=== PATIENT | female | born 1985 | race Caucasian/White ===

== ENCOUNTER 2016-10-26 10:18 | Outpatient (CLI) | payer BC, OTHER ==
[~2016-10-26] VITALS: Ht 165.1 cm; Wt 117.5 kg
[2016-10-26 10:33] VITALS: BP 136/85; PULSE 113; RESP 20; Ht 165.1 cm; Wt 117.5 kg
[2016-10-26] MEDS ORDERED: PREN1TAB79 PO (10:35)
--- NOTE | 2016-10-26 13:06 | RADRPT ---
PROCEDURE: US OB biophysical profile. CLINICAL INDICATION: decreased movements TECHNIQUE: Multiple sonographic images of the pelvis were obtained. The images were reviewed on a PACS workstation. COMPARISON: No prior studies are available for comparison. FINDINGS: There is a single viable intrauterine gestation. Cardiac activity is present with 137 beats per min nadja. There is a vertex presentation. The placenta is posterior. There is no evidence of placental abruption. There is a normal amount of amniotic fluid with an SIDDHARTHA = 14.9 cm. Biophysical profile: movement 2/2 tone 2/2. breathing 2/2 SIDDHARTHA 2/2 Total 01/31 RPTAT: AA . IMPRESSION: Normal biophysical profile. . .Torrey Clancy MD, MD Date Time Electronically viewed and signed by .Torrey Clancy MD, MD on 10/26/2016 13:06 .S/
== END 2016-10-26 14:25 | disposition home or self-care (01) ==
LOC: OBT 10:18 → L-D 10:19 → OBT 14:25
PROVIDERS: ATTEND Obstetrics & Gynecology
DX: O09.90 Supervision of high risk pregnancy, unspecified, unspecified trimester (principal); O36.8190 Decreased fetal movements, unspecified trimester, not applicable or unspecified; Z3A.00 Weeks of gestation of pregnancy not specified
CPT/HCPCS: 76818; Z7500; G0463

== ENCOUNTER 2016-10-31 09:51 | Inpatient (IN) | payer OTHER ==
[~2016-10-31] VITALS: Ht 165.1 cm; Wt 117.7 kg
[~2016-10-31 09:51] MED LIST: PREN1TAB79 PO
[2016-10-31 09:59] VITALS: Ht 165.1 cm; Wt 117.7 kg
[2016-10-31] MEDS ORDERED: CEFAZOLIN 2 GM/50 ML (PMX) 50 ML IV SCH (10:00)
[2016-10-31] MEDS ORDERED: OXYTOCIN 30 UNITS/LR 500 ML IV PRN ×2 (10:00→18:00)
[2016-10-31] MEDS ORDERED: METHYLERGONOVINE 0.2 MG INJ IM PRN ×2 (10:00→18:00)
[2016-10-31] MEDS ORDERED: OXYTOCIN 30 UNITS/LR 500 ML IV SCH (10:00)
[2016-10-31] MEDS ORDERED: CARBOPROST 250 MCG INJ IM PRN ×2 (10:00→18:00)
[2016-10-31] MEDS ORDERED: MISOPROSTOL 200 MCG TAB PR PRN ×2 (10:00→18:00)
[2016-10-31 10:43] LABS: ADD SCAN DIFF NO
[2016-10-31 10:47] LABS: BASOPHILS % 0.1 % (0.0-2.0); EOSINOPHILS # 0.1 10^3/ul (0.0-0.5); EOSINOPHILS % 0.8 % (0.0-7.0); HEMATOCRIT 32.8 % (37.0-47.0); HEMOGLOBIN 10.4 g/dl (12.0-16.0); LYMPHOCYTES # 2.3 10^3/ul (0.8-2.9); LYMPHOCYTES % 32.2 % (15.0-51.0); MEAN CORPUSCULAR HEMOGLOBIN 27.4 pg (29.0-33.0); MEAN CORPUSCULAR HGB CONC 31.7 g/dl (32.0-37.0); MEAN CORPUSCULAR VOLUME 86.5 fl (82.0-101.0); MEAN PLATELET VOLUME 9.8 fl (7.4-10.4); MONOCYTE # 0.4 10^3/ul (0.3-0.9); MONOCYTES % 5.5 % (0.0-11.0); NEUTROPHIL # 4.3 10^3/ul (1.6-7.5); NEUTROPHILS % 60.4 % (39.0-77.0); NUCLEATED RED BLOOD CELLS% 0.3 /100WBC (0.0-0.0); PLATELET COUNT 338 10^3/UL (140-415); RED BLOOD COUNT 3.79 10^6/ul (4.20-5.40); RED CELL DISTRIBUTION WIDTH 14.1 % (11.5-14.5); WHITE BLOOD COUNT 7.1 10^3/ul (4.8-10.8)
[2016-10-31 11:05] LABS: INR 0.91; PARTIAL THROMBOPLASTIN TIME 26.5 Sec (25.0-35.0); PROTIME 12.2 Sec (12.2-14.2)
[2016-10-31] MEDS: LACTATED RINGER'S 1,000 ML IV PRN (12:12)
[2016-10-31] MEDS ORDERED: ONDANSETRON 4 MG INJ ONE (13:12)
[2016-10-31] MEDS ORDERED: PHENYLephrine (100 MCG/ML) 5ML SYG ONE ×3 (13:12→14:06)
[2016-10-31] MEDS ORDERED: morphine SULFATE/PF (10 MG/10 ML) INJ ONE (13:12)
[2016-10-31] MEDS ORDERED: OXYTOCIN 10 UNIT INJ ONE (13:12)
--- NOTE | 2016-10-31 13:38 | HP ---
Date/Time of Note Date/Time of Note DATE: 10/31/16 TIME: 13:30 OB - History Hx of Present Free Text/Dictation 30 years old female 3 para 2 EDC November 03, 2006 admitted to [facility] at 39 weeks and 4 days with a history of 2 previous section and requests for bilateral tubal ligation this patient has been under the care of the [facility] and her was not complicated with gestational diabetes -induced hypertension or any other serious surgical or medical conditions. 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 Allergies denies allergy to any known medication Social habit denies a smoking or drinking Review of system within normal except obesity Physical examination 5 feet 5 259 pounds temperature 98.1 pulse 86 respirations 16 blood pressure 132/80 Head ears nose and throat negative Neck supple no thyromegaly Lungs clear to P&A Heart normal sinus rhythm no murmur Abdomen morbid obesity fundal height 40 cm from symphysis pubis heart rate category 1 Pelvic exam deferred Extremities no edema no varicosities Impression intrauterine at 39 weeks and 4 days history of 2 previous C -section Plan repeat for the third time patient is aware of the complication of the surgery including bowel bladder injury wound infection wound hematoma, and she is willing to go ahead with the procedure Past Family/Social History * Past Medical, Surgical, Family and Obstetric Histories reviewed from chart. OB Admission Exam Physical Exam HEENT: WNL Heart: Rhythm Normal Lungs: Clear, Equal Abdomen: WNL Extremities: Normal Cervical Dilatation: None Effacement: 0% Membranes: Intact Heart Rate: 130's Accelerations: Accelerations Present Contractions on Admission: >10 Minutes Apart Intensity: Mild Last 72 hours Lab Results CBC & BMP 10/31/16 10:15 ZACH VARNER MD October 31, 2016 13:38
[2016-10-31] MEDS ORDERED: NALOXONE (0.4 MG/ML) INJ IV PRN (15:00)
[2016-10-31] MEDS ORDERED: morphine 2 MG INJ IV PRN (15:00)
[2016-10-31] MEDS: DIPHENHYDRAMINE 50 MG INJ IV PRN (15:35)
[2016-10-31] MEDS: ONDANSETRON 4 MG INJ IV PRN ×2 (15:59→21:59)
--- NOTE | 2016-10-31 17:06 | DELSUM ---
Delivery Summary A-C Datetime Report Generated by CPN: 10/31/2016 17:06 DELIVERY PERSONNEL Equipment Analyst: Wesley, Shira MATERNAL INFORMATION Delivery Anesthesia: Spinal Medications in Delivery: SEE ANESTHESIA RECORD Estimated Blood Loss (ml): 647 Placenta Cultured: No Maternal Complications: None Other Maternal Complications: REPEAT SECTION WITH BTL LABOR SUMMARY EDC: 11/03/2016 00:00 EDC: 10/31/2016 00:00 No. Babies in Womb: 1 Attempted: No Labor Anesthesia: None LABOR INFORMATION Reason for Induction: Not Applicable Oxytocin: N/A Group B Beta Strep: Positive Group B Beta Strep: Positive Antibiotics # of Doses: ANCEF 2 GRAMS Antibiotics Time of Last Dose: 10/31/2016 13:15 Steroids Given: None Reason Steroids Not Administered: Not Applicable MEMBRANES Membranes Rupture Method: Artificial Rupture of Membranes: 10/31/2016 13:46 Length of Rupture (hr): 0.02 Amniotic Fluid Color: Clear Amniotic Fluid Amount: Large Amniotic Fluid Odor: None STAGES OF LABOR Stage 3 hr: 0 Stage 3 min: 3 CSECTION DELIVERY Primary Indication: Repeat Elective Secondary Indication: Repeat Elective CSection Urgency: Elective CSection Incidence: Repeat Labor: No Labor Elective: Elective CSection Incision: Lower Uterine Transverse Sterilization Procedure: [place] BABY A INFORMATION Infant Delivery Date/Time: 10/31/2016 13:47 Method of Delivery: Born in Route : No : N/A Forceps: N/A Vacuum Extraction: N/A Shoulder Dystocia : N/A SHOULDER DYSTOCIA BABY A Delivery Date/Time: 10/31/2016 13:47 PRESENTATION/POSITION BABY A Presentation: Other Cephalic Presentation: N/A Breech Presentation: Dwayne PLACENTA INFORMATION BABY A Placenta Delivery Time : 10/31/2016 13:50 Placenta Method of Delivery: Manual Removal Placenta Status: Delivered SCORES BABY A Heart Rate 1 min: >100 bpm Resp Effort 1 min: Good Cry Reflex Irritability 1 min: Cough/Sneeze/Pulls Away Muscle Tone 1 min: Active Motion Color 1 min: Body [place], Extremit Blue Resuscitation Effort 1 min: Tactile Stimulation SCORE 1 MIN: 9 Heart Rate 5 min: >100 bpm Resp Effort 5 min: Good Cry Reflex Irritability 5 min: Cough/Sneeze/Pulls Away Muscle Tone 5 min: Active Motion Color 5 min: Body [place], Extremit Blue SCORE 5 MIN: 9 INFORMATION BABY A Gestational Age at Delivery: 39.4 Gestational Status: Full Term- 39- 40.6 Weeks Infant Outcome : Liveborn Infant Condition : Stable Sex: Female IDENTIFICATION/MEDS BABY A ID Band Number: [id number] ID Band Location: Right Leg; Left Arm Sensor Applied: Yes Sensor Number: [id number] Sensor Location : Cord Clamp Vitamin K Given : Aquamephyton 1 mg IM; Left Thigh Erythromycin Given: Given Both Eyes WEIGHT/LENGTH BABY A Infant Birthweight (gm): 3610 Weight (lb): 7 Infant Weight (oz): 15 Length (in): 21.00 Length (cm): 53.34 CORD INFORMATION BABY A No. 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
[2016-10-31 17:40] VITALS: BP 140/82; PULSE 66; RESP 18
[2016-10-31] MEDS ORDERED: ACETAMINOPHEN/CODEINE #3 TAB PO PRN ×2 (18:00)
[2016-10-31] MEDS ORDERED: LANOLIN 7 GM TUBE TOP PRN (18:00)
[2016-10-31] MEDS ORDERED: OXYCODONE/ACETAMINOPHEN (5/325) TAB PO PRN (18:00)
[2016-10-31 18:11] VITALS: BP 133/84; PULSE 68; RESP 19
[2016-10-31] MEDS: OXYTOCIN 30 UNITS/LR 500 ML IV SCH ×2 (18:22→23:03)
[2016-10-31] MEDS: KETOROLAC 30 MG INJ IV PRN (18:23)
--- NOTE | 2016-10-31 18:49 | OPR ---
DATE OF OPERATION: 10/31/2016 PREOPERATIVE DIAGNOSES: 1. Intrauterine at 39 weeks and 4 days. 2. History of 2 previous C-sections. 3. Request for voluntary sterilization, bilateral tubal ligation. POSTOPERATIVE DIAGNOSES: 1. Intrauterine at 39 weeks and 4 days. 2. History of 2 previous C-sections. 3. Request for voluntary sterilization, bilateral tubal ligation. PROCEDURE: Repeat transverse low cervical section for the third time. Bilateral tubal lig ation. SURGEON: Zach Waddell MD SQL DBA: Robert Cleary MD ANESTHESIA: Spinal. ANESTHESIOLOGIST: Dr. Johnson. FINDINGS: Live baby girl, 8, 9, and 9. Baby weighed 3610 grams, equal to 7 pounds 15 ounces. DETAILS OF THE PROCEDURE: Under satisfactory spinal anesthesia, the patient was prepped and draped and placed in supine position, tilted to the left. Pfannenstiel incision was made. Old scar was re moved. Incision carried through the subcutaneous tissue. Bleeders brought under control with elect rocautery. Fascia incised to the length of the incision. Rectus muscle divided in midline. Perito neum exposed, entered through a transverse incision. Exploration of abdomen revealed a gravid uteru s at term, normal appearing tubes and ovaries, and extremely thinned out lower segment of the uterus . Bladder flap was developed. Transverse incision was made in the lower segment of the uterus. Am niotic sac ruptured. Clear amniotic fluid noted. Live baby girl was delivered from javan breech pr esentation. After delivering the baby's buttock, the rest of the body pulled out gently. Shoulders delivered first, posterior shoulder, and then body rotated by 30 degrees rotation the anterior shou lder as well. Head delivered with Mauriceau maneuver. Nasal oropharyngeal suction was performed. Cord clamped after it stopped pulsation. Baby handed to the team for immediate attention. The patient received 20 units of Pitocin. Placenta delivered manually intact. Uterine cavity jesse jose carlos with wet sponge and drainage established. Uterus closed in 2 layers using Monocryl #1 in contin uous fashion. Bilateral tubal ligation performed by identifying the ampullar section of the right f allopian tube grasped by a Davis. Suture material used #0 plain catgut was reinforced with the sa me suture material. The top of the loop 3/4 of inch was excised. The cut end of the tube was caute rized and the specimen submitted for the pathology. The same procedure performed for the opposite s loki. Abdominal cavity irrigated with warm saline. A second sponge, needle, and instrument reported to be correct. Abdominal peritoneum closed with 2-0 chromic catgut continuously. Rectus muscle ap proximated with few interrupted 2-0 chromic catgut. Fascia closed with #1 PDS in a continuous fashi on. Subcutaneous tissue approximated with 2-0 chromic catgut. Skin closed with caroline. Estimated blood loss 600 mL. Urine bag contained 200 mL of clear urine. The patient tolerated procedure wel l, transferred to recovery room in a good condition. Dictated By: ZACH BA/ANKUR Conf#: [id number] DID#: [id number]
[2016-10-31 19:30] VITALS: BP 120/77; PULSE 68; RESP 18
[2016-10-31] MEDS ORDERED: CEFAZOLIN 1 GM/50 ML (PMX) 50 ML IVPB SCH (21:00)
[2016-11-01] VITALS: BP 119/69; PULSE 68; RESP 19
[2016-11-01] MEDS: DIPHENHYDRAMINE 50 MG INJ IV PRN ×2 (01:47→12:41)
[2016-11-01] MEDS: OXYTOCIN 30 UNITS/LR 500 ML IV SCH ×2 (03:22→07:42)
[2016-11-01 04:00] VITALS: BP 115/65; PULSE 64; RESP 19
[2016-11-01] MEDS: LACTATED RINGER'S 1,000 ML IV PRN (07:19)
[2016-11-01 08:28] LABS: ADD SCAN DIFF NO
[2016-11-01 08:30] VITALS: BP 111/68; PULSE 77; RESP 20
[2016-11-01 08:53] LABS: BASOPHILS % 0.1 % (0.0-2.0); EOSINOPHILS % 0.1 % (0.0-7.0); HEMATOCRIT 30.6 % (37.0-47.0); HEMOGLOBIN 9.8 g/dl (12.0-16.0); LYMPHOCYTES # 1.8 10^3/ul (0.8-2.9); LYMPHOCYTES % 20.6 % (15.0-51.0); MEAN CORPUSCULAR HEMOGLOBIN 27.8 pg (29.0-33.0); MEAN CORPUSCULAR VOLUME 86.9 fl (82.0-101.0); MEAN PLATELET VOLUME 10.1 fl (7.4-10.4); MONOCYTE # 0.5 10^3/ul (0.3-0.9); MONOCYTES % 5.1 % (0.0-11.0); NEUTROPHIL # 6.6 10^3/ul (1.6-7.5); NEUTROPHILS % 73.7 % (39.0-77.0); PLATELET COUNT 306 10^3/UL (140-415); RED BLOOD COUNT 3.52 10^6/ul (4.20-5.40); RED CELL DISTRIBUTION WIDTH 13.7 % (11.5-14.5); WHITE BLOOD COUNT 8.9 10^3/ul (4.8-10.8)
[2016-11-01] MEDS: KETOROLAC 30 MG INJ IV PRN (11:28)
[2016-11-01 12:30] VITALS: BP 106/58; PULSE 74; RESP 16
[2016-11-01] MEDS: OXYCODONE/ACETAMINOPHEN (5/325) TAB PO PRN (15:15)
[2016-11-01 15:30] VITALS: BP 104/56; PULSE 85; RESP 16
--- NOTE | 2016-11-01 15:43 | PN ---
Date/Time of Note Date/Time of Note DATE: 11/01/16 TIME: 15:39 OB Subjective Subjective Subjective November 01, 2016 Post C Section day 2 Doing Well Afebrile Ambulatory Chest Clear Brests are soft , Nipples are intact Abdomen is soft Fundus is firm Moderate amount of lochia Incision is clean ,No evidence of infection No calf tenderness No ankle edema New born is doing well, Breast feeding Laboratory Tests Test 11/01/16 07:22 White Blood Count 8.910^3/ul Red Blood Count 3.5210^6/ul Hemoglobin 9.8g/dl Hematocrit 30.6% Mean Corpuscular Volume 86.9fl Mean Corpuscular Hemoglobin 27.8pg Mean Corpuscular Hemoglobin Concent 32.0g/dl Red Cell Distribution Width 13.7% Platelet Count 63313^3/UL Mean Platelet Volume 10.1fl Neutrophils % 73.7% Lymphocytes % 20.6% Monocytes % 5.1% Eosinophils % 0.1% Basophils % 0.1% Nucleated Red Blood Cells % 0.0/100WBC Neutrophils # 6.610^3/ul Lymphocytes # 1.810^3/ul Monocytes # 0.510^3/ul Eosinophils # 0.010^3/ul Basophils # 0.010^3/ul Nucleated Red Blood Cells # 0.010^3/ul Current Medications Medications (Trade) Dose Ordered Sig/Bright Route PRN Reason Start Time Stop Time Status Last Admin Dose Admin Cefazolin Sodium/ Dextrose 50 ml @ 100 mls/hr ONCE IV 10/31/16 10:00 10/31/16 17:39 DC Oxytocin/Lactated Ringer's 500 ml @ 125 mls/hr ONCE IV 10/31/16 10:00 10/31/16 15:10 Oxytocin/Lactated Ringer's 500 ml @ 0 mls/hr ONCE PRN IV For Hemorrhage Management 10/31/16 10:00 10/31/16 17:39 DC Methylergonovine Maleate (Methergine) 0.2 mg ONCE PRN IM VAGINAL BLEEDING 10/31/16 10:00 Carboprost Tromethamine (Hemabate) 250 mcg ONCE PRN IM VAGINAL BLEEDING 10/31/16 10:00 Misoprostol 1000 mcg 1,000 mcg ONCE PRN NC VAGINAL BLEEDING 10/31/16 10:00 Lactated Ringer's (Lr) 1,000 ml @ 1,000 mls/hr Q1H PRN IV PRIOR TO SURGERY 10/31/16 11:00 11/01/16 07:19 Morphine Sulfate (Duramorph) 10 mg STK-MED ONCE .ROUTE 10/31/16 13:12 10/31/16 13:13 DC Phenylephrine HCl (Michelet-Synephrine Inj Syg) 500 mcg STK-MED ONCE .ROUTE 10/31/16 13:12 10/31/16 13:13 DC Ondansetron HCl (Zofran Inj) 4 mg STK-MED ONCE .ROUTE 10/31/16 13:12 10/31/16 13:13 DC Oxytocin (Oxytocin) 10 units STK-MED ONCE .ROUTE 10/31/16 13:12 10/31/16 13:13 DC Phenylephrine HCl (Michelet-Synephrine Inj Syg) 500 mcg STK-MED ONCE .ROUTE 10/31/16 13:37 10/31/16 13:38 DC Phenylephrine HCl (Michelet-Synephrine Inj Syg) 500 mcg STK-MED ONCE .ROUTE 10/31/16 14:06 10/31/16 14:07 DC Naloxone HCl (Narcan) 0.1 mg Q2M PRN IV FOR RESP RATE 8 OR LESS 10/31/16 15:00 11/01/16 13:00 DC Ketorolac Tromethamine (Toradol) 30 mg Q6H PRN IV PAIN 10/31/16 15:00 11/01/16 13:00 DC 11/01/16 11:28 Morphine Sulfate (morphine) 2 mg Q3H PRN IV PAIN LEVEL 1-5 10/31/16 15:00 11/01/16 13:00 DC Diphenhydramine HCl (Benadryl) 25 mg Q6H PRN IV ITCHING 10/31/16 15:00 11/01/16 13:00 DC 11/01/16 12:41 Ondansetron HCl (Zofran Inj) 4 mg Q6H PRN IV NAUSEA AND/OR VOMITING 10/31/16 15:00 11/01/16 13:00 DC 10/31/16 21:59 Miscellaneous Information (* Miscellaneous Pharmacy Order) Duramorph: 0.2 mg Spi... GIVEN XX 10/31/16 15:00 10/31/16 15:00 DC Acetaminophen/ Codeine Phosphate (Tylenol No.3) 1 tab Q4H PRN PO PAIN LEVEL 4-6 10/31/16 18:00 Acetaminophen/ Codeine Phosphate (Tylenol No.3) 2 tab Q4H PRN PO PAIN LEVEL 7-10 10/31/16 18:00 Oxycodone/ Acetaminophen (Percocet (5/ 325)) 1 tab Q4H PRN PO PAIN LEVEL 4-6 10/31/16 18:00 Oxycodone/ Acetaminophen (Percocet (5/ 325)) 2 tab Q4H PRN PO PAIN LEVEL 7-10 10/31/16 18:00 11/01/16 15:15 Ibuprofen (Motrin) 600 mg Q6 PO 11/01/16 18:00 Simethicone (Mylicon) 160 mg Q8H PRN PO DISTENSION/GAS/BLOATING 10/31/16 18:00 Senna/Docusate Sodium (Senokot-S) 1 tab BID PO 11/01/16 21:00 Lanolin (Hxs-C-Cdpqsn) 1 applic BEDSIDE MEDICATION PRN TOP BEDSIDE FOR BRAXTON TO NIPPLES 10/31/16 18:00 11/01/16 06:09 Diphtheria/ Tetanus/Acell Pertussis 0.5 ml 0.5 ml ONCE ONCE IM* 11/03/16 09:00 11/03/16 09:01 Oxytocin/Lactated Ringer's 500 ml @ 0 mls/hr ONCE PRN IV For Hemorrhage Management 10/31/16 18:00 Methylergonovine Maleate (Methergine) 0.2 mg ONCE PRN IM VAGINAL BLEEDING 10/31/16 18:00 Carboprost Tromethamine (Hemabate) 250 mcg ONCE PRN IM VAGINAL BLEEDING 10/31/16 18:00 Misoprostol 1000 mcg 1,000 mcg ONCE PRN NC VAGINAL BLEEDING 10/31/16 18:00 Cefazolin Sodium 50 ml @ 100 mls/hr ONCE IVPB 10/31/16 21:00 10/31/16 23:33 DC 10/31/16 21:50 Oxytocin/Lactated Ringer's 500 ml @ 125 mls/hr Q4H IV 10/31/16 17:35 11/01/16 07:44 DC 11/01/16 03:22 DAVON WILLOUGHBY MD November 01, 2016 15:43
[2016-11-01] MEDS: IBUPROFEN 600 MG TAB PO SCH ×2 (18:03→23:26)
[2016-11-01 19:50] VITALS: BP 116/59; PULSE 87; RESP 18
[2016-11-01] MEDS: SENNA/DOCUSATE NA (8.6MG/50MG) TAB PO SCH (21:39)
[2016-11-02 03:53] VITALS: BP 97/55; PULSE 75; RESP 18
[2016-11-02] MEDS: OXYCODONE/ACETAMINOPHEN (5/325) TAB PO PRN ×3 (04:37→21:56)
[2016-11-02] MEDS: IBUPROFEN 600 MG TAB PO SCH ×4 (05:42→23:44)
[2016-11-02 08:00] VITALS: BP 119/70; PULSE 85; RESP 18
[2016-11-02] MEDS: SENNA/DOCUSATE NA (8.6MG/50MG) TAB PO SCH ×2 (09:06→21:55)
--- NOTE | 2016-11-02 09:20 | PN ---
Date/Time of Note Date/Time of Note DATE: 11/02/16 TIME: 09:18 OB Subjective Subjective Subjective Post day 2 Afebrile vital signs stable abdomen soft good bowel sounds incision dry no bowel movement enema recommended OB Objective HEENT: WNL Lungs: Clear, Equal Abdomen: WNL Extremities: Normal Reflexes: Normal OB Assessment/Plan Induction Method: other (Post day 2 expecting management fleets enema recommended) ZACH VARNER MD November 02, 2016 09:20
[2016-11-02 16:20] VITALS: BP 116/61; PULSE 83; RESP 18
[2016-11-02 20:00] VITALS: BP 128/80; PULSE 82; RESP 18
[2016-11-03 04:00] VITALS: BP 123/58; PULSE 82; RESP 18
[2016-11-03] MEDS: IBUPROFEN 600 MG TAB PO SCH ×2 (06:40→11:44)
[2016-11-03 08:00] VITALS: BP 130/86; PULSE 74; RESP 20
[2016-11-03] MEDS ORDERED: DIPHTH/TET/ACEL PERTUSS (ADULT) 0.5 ML VIAL IM* ONE (09:00)
[2016-11-03] MEDS: SENNA/DOCUSATE NA (8.6MG/50MG) TAB PO SCH (09:30)
[2016-11-03] MEDS ORDERED: IBUP-1542 PO (11:51)
--- NOTE | 2016-11-03 11:56 | DS ---
Date/Time of Note Date/Time of Note DATE: 11/03/16 TIME: 11:53 Obstetrical Discharge Record Final Diagnosis Final Diagnosis: Term delivered Section Section: Primary Condition on Discharge Physical Assessment Voiding: Yes Bowel Movement: Yes Breast: Soft, non-tender Fundus: Firm Abdomen and Incision: Clean , caroline to be removed in clinic in 3 days Calf Tenderness: No Patient Condition: Good 24 HR. SUMMARY 24 HR. SUMMARY Current Medications Medications (Trade) Dose Ordered Sig/Bright Route PRN Reason Start Time Stop Time Status Last Admin Dose Admin Cefazolin Sodium/ Dextrose 50 ml @ 100 mls/hr ONCE IV 10/31/16 10:00 10/31/16 17:39 DC Oxytocin/Lactated Ringer's 500 ml @ 125 mls/hr ONCE IV 10/31/16 10:00 11/01/16 16:12 DC 10/31/16 15:10 Oxytocin/Lactated Ringer's 500 ml @ 0 mls/hr ONCE PRN IV For Hemorrhage Management 10/31/16 10:00 10/31/16 17:39 DC Methylergonovine Maleate (Methergine) 0.2 mg ONCE PRN IM VAGINAL BLEEDING 10/31/16 10:00 Carboprost Tromethamine (Hemabate) 250 mcg ONCE PRN IM VAGINAL BLEEDING 10/31/16 10:00 Misoprostol 1000 mcg 1,000 mcg ONCE PRN SC VAGINAL BLEEDING 10/31/16 10:00 Lactated Ringer's (Lr) 1,000 ml @ 1,000 mls/hr Q1H PRN IV PRIOR TO SURGERY 10/31/16 11:00 11/01/16 16:12 DC 11/01/16 07:19 Morphine Sulfate (Duramorph) 10 mg STK-MED ONCE .ROUTE 10/31/16 13:12 10/31/16 13:13 DC Phenylephrine HCl (Michelet-Synephrine Inj Syg) 500 mcg STK-MED ONCE .ROUTE 10/31/16 13:12 10/31/16 13:13 DC Ondansetron HCl (Zofran Inj) 4 mg STK-MED ONCE .ROUTE 10/31/16 13:12 10/31/16 13:13 DC Oxytocin (Oxytocin) 10 units STK-MED ONCE .ROUTE 10/31/16 13:12 10/31/16 13:13 DC Phenylephrine HCl (Michelet-Synephrine Inj Syg) 500 mcg STK-MED ONCE .ROUTE 10/31/16 13:37 10/31/16 13:38 DC Phenylephrine HCl (Michelet-Synephrine Inj Syg) 500 mcg STK-MED ONCE .ROUTE 10/31/16 14:06 10/31/16 14:07 DC Naloxone HCl (Narcan) 0.1 mg Q2M PRN IV FOR RESP RATE 8 OR LESS 10/31/16 15:00 11/01/16 13:00 DC Ketorolac Tromethamine (Toradol) 30 mg Q6H PRN IV PAIN 10/31/16 15:00 11/01/16 13:00 DC 11/01/16 11:28 Morphine Sulfate (morphine) 2 mg Q3H PRN IV PAIN LEVEL 1-5 10/31/16 15:00 11/01/16 13:00 DC Diphenhydramine HCl (Benadryl) 25 mg Q6H PRN IV ITCHING 10/31/16 15:00 11/01/16 13:00 DC 11/01/16 12:41 Ondansetron HCl (Zofran Inj) 4 mg Q6H PRN IV NAUSEA AND/OR VOMITING 10/31/16 15:00 11/01/16 13:00 DC 10/31/16 21:59 Miscellaneous Information (* Miscellaneous Pharmacy Order) Duramorph: 0.2 mg Spi... GIVEN XX 10/31/16 15:00 10/31/16 15:00 DC Acetaminophen/ Codeine Phosphate (Tylenol No.3) 1 tab Q4H PRN PO PAIN LEVEL 4-6 10/31/16 18:00 Acetaminophen/ Codeine Phosphate (Tylenol No.3) 2 tab Q4H PRN PO PAIN LEVEL 7-10 10/31/16 18:00 Oxycodone/ Acetaminophen (Percocet (5/ 325)) 1 tab Q4H PRN PO PAIN LEVEL 4-6 10/31/16 18:00 Oxycodone/ Acetaminophen (Percocet (5/ 325)) 2 tab Q4H PRN PO PAIN LEVEL 7-10 10/31/16 18:00 11/02/16 21:56 Ibuprofen (Motrin) 600 mg Q6 PO 11/01/16 18:00 11/03/16 11:44 Simethicone (Mylicon) 160 mg Q8H PRN PO DISTENSION/GAS/BLOATING 10/31/16 18:00 11/03/16 06:44 Senna/Docusate Sodium (Senokot-S) 1 tab BID PO 11/01/16 21:00 11/03/16 09:30 Lanolin (Uaf-W-Lfdiej) 1 applic BEDSIDE MEDICATION PRN TOP BEDSIDE FOR BRAXTON TO NIPPLES 10/31/16 18:00 11/01/16 06:09 Diphtheria/ Tetanus/Acell Pertussis 0.5 ml 0.5 ml ONCE ONCE IM* 11/03/16 09:00 11/03/16 09:01 DC 11/03/16 09:29 Oxytocin/Lactated Ringer's 500 ml @ 0 mls/hr ONCE PRN IV For Hemorrhage Management 10/31/16 18:00 Methylergonovine Maleate (Methergine) 0.2 mg ONCE PRN IM VAGINAL BLEEDING 10/31/16 18:00 Carboprost Tromethamine (Hemabate) 250 mcg ONCE PRN IM VAGINAL BLEEDING 10/31/16 18:00 Misoprostol 1000 mcg 1,000 mcg ONCE PRN SC VAGINAL BLEEDING 10/31/16 18:00 Cefazolin Sodium 50 ml @ 100 mls/hr ONCE IVPB 10/31/16 21:00 10/31/16 23:33 DC 10/31/16 21:50 Oxytocin/Lactated Ringer's 500 ml @ 125 mls/hr Q4H IV 10/31/16 17:35 11/01/16 07:44 DC 11/01/16 03:22 DAVON WILLOUGHBY MD November 03, 2016 11:56
== END 2016-11-03 15:30 | disposition home or self-care (01) | DRG 765 ==
LOC: L-D 09:51 → PP1 17:27
PROVIDERS: ADMIT Obstetrics & Gynecology; ATTEND Obstetrics & Gynecology
PROC: 0UB70ZZ Excision of Bilateral Fallopian Tubes, Open Approach (ICD-10-PCS; 2016-10-31)
PROC: 10D00Z1 Extraction of Products of Conception, Low, Open Approach (ICD-10-PCS; principal; 2016-10-31 12:30)
DX: O34.211 Maternal care for low transverse scar from previous cesarean delivery (principal); Z68.41 Body mass index [BMI] 40.0-44.9, adult; O99.824 Streptococcus B carrier state complicating childbirth; Z3A.39 39 weeks gestation of pregnancy; Z37.0 Single live birth; O32.1XX0 Maternal care for breech presentation, not applicable or unspecified; Z30.2 Encounter for sterilization; O99.213 Obesity complicating pregnancy, third trimester; E66.01 Morbid (severe) obesity due to excess calories
CPT/HCPCS: 85025; 85610; 85730; 86592; 86850; 86870; 86900; 86901; 86902; 87340; 88302; 90715; 94760; 99464; J0690; J1200; J1885; J2274; J2370; J2405; J2590